=== PATIENT | female | born 1950 | race Hispanic/Latino ===

== ENCOUNTER 2019-07-25 12:28 | Emergency (ER) | payer MEDICARE ==
[~2019-07-25] VITALS: Ht 154.9 cm; Wt 83.9 kg
[2019-07-25] MEDS ORDERED: DIPHENHYDRAMINE HCL 25 MG CAP PO NR (13:30)
[2019-07-25] MEDS ORDERED: IBUPROFEN 400 MG TAB PO NR (13:30)
[2019-07-25] MEDS ORDERED: CEPHALEXIN 500 MG CAP PO NR (13:30)
[2019-07-25 14:10] VITALS: BP 180/94
== END 2019-07-25 14:12 | disposition home or self-care (01) ==
LOC: ER 12:28
DX: K04.7 Periapical abscess without sinus (principal); K02.9 Dental caries, unspecified
CPT/HCPCS: 99281